=== PATIENT | male | born 1980 ===

== ENCOUNTER 2023-10-16 11:51 | Outpatient (OUT) | payer OTHER, SELFPAY ==
[2023-10-16 12:49] LABS: Alanine Aminotransferase 27 U/L (16-63); Albumin Level 1.8 g/dL (3.4-5.0); Alkaline Phosphatase 222 U/L (46-116); Anion Gap 11.3; Aspartate Amino Transferase 51 U/L (15-37); BUN Creatinine Ratio 11.1; Bilirubin Total 1.1 mg/dL (0.2-1.0); Calcium 7.4 mg/dL (8.5-10.1); Carbon Dioxide 23.2 mmol/L (21.0-32.0); Chloride 109 mmol/L (98-107); Estimated GFR (African America >60 (>=60); Estimated GFR (Non-African Ame >60 (>=60); Glucose 88 mg/dL (74-106); Potassium 3.5 mmol/L (3.5-5.1); Sodium 140 mmol/L (136-145); Total Protein 5.8 g/dL (6.4-8.2)
[2023-10-16 12:51] LABS: Albumin Globulin Ratio 0.5
[2023-10-16 12:54] LABS: Basophils Percent Auto 1.6 % (0.2-2.0); Eosinophils Absolute Auto 0.1 10^3/uL (0.0-0.7); Eosinophils Percent Auto 5.1 % (0.9-7.0); Hematocrit 30.5 % (42.0-54.0); Hemoglobin 9.5 g/dL (14.0-18.0); Immature Granulocytes Abs Auto 0.03 10^3/uL (0.00-0.03); Immature Granulocytes Pct Auto 1.2 % (0.0-0.5); Lymphocytes Absolute Auto 0.8 10^3/uL (1.2-3.8); Lymphocytes Percent Auto 33.1 % (20.5-60.0); Mean Corpuscular HGB Conc 31.1 g/dL (29.9-35.2); Mean Corpuscular Hemoglobin 31.1 pg (25.9-34.0); Mean Platelet Volume 11.1 fL (9.5-13.5); Monocytes Absolute Auto 0.4 10^3/uL (0.3-0.8); Neutrophils Absolute Auto 1.1 10^3/uL (1.4-6.5); Red Blood Count 3.05 10^6/uL (4.70-6.10); Red Cell Distribution Width 18.6 % (11.0-15.0); White Blood Count 2.5 10^3/uL (4.0-11.0)
[2023-10-16 13:05] LABS: Ammonia 168 umol/L (11-32)
[2023-10-16 13:15] LABS: Platelet Count 72 10^3/uL (150-450)
== END 2023-10-16 11:52 | disposition home or self-care (01) ==
PROVIDERS: Visit Provider Nurse Practitioner Primary Care
DX: F10.20 Alcohol dependence, uncomplicated (principal)
CPT/HCPCS: 36415; 80053; 82140; 85025

== ENCOUNTER 2023-10-25 13:35 | Outpatient (OUT) | payer OTHER, SELFPAY ==
[2023-10-25 14:40] LABS: Ammonia 149 umol/L (11-32)
== END 2023-10-25 13:36 | disposition home or self-care (01) ==
LOC: LAB 13:36
PROVIDERS: Visit Provider Nurse Practitioner Primary Care
DX: Z79.899 Other long term (current) drug therapy (principal)
CPT/HCPCS: 36415; 82140